=== PATIENT | female | born 1990 | race Two or more races ===

== ENCOUNTER 2020-09-04 09:04 | Emergency (ER) | payer SELFPAY ==
[~2020-09-04] VITALS: Ht 167.6 cm; Wt 65.8 kg
--- NOTE | 2020-09-04 09:10 | NUR ---
Griffin rodríguez in ED - 09/04/20 at 0924 by GISSELLE [email or web address], FOUND ON SIDEWALK ACTING BIZARRE, TO ER BED 15, HOOKED TO MONITOR, SITTER AT BEDSIDE FOR SAFETY.
[2020-09-04] MEDS ORDERED: OLANZAPINE 10 MG VIAL IM ONE ×2 (09:11→09:30)
--- NOTE | 2020-09-04 09:11 | NUR ---
[email or web address], FOUND ON SIDEWALK ACTING BIZARRE. PATIENT A/OX1, AWAKE AND ALERT, UNABLE TO SAY HER NAME, INCOHERENT.
--- NOTE | 2020-09-04 09:20 | NUR ---
URINE SENT TO LAB.
[2020-09-04] MEDS ORDERED: LORAZEPAM INJ 2 MG/ML VIAL IM ONE (09:30)
[2020-09-04] MEDS ORDERED: LORAZEPAM INJ 2 MG/ML VIAL ONE (09:37)
--- NOTE | 2020-09-04 10:03 | NUR ---
RAPID COVID SWAB DONE AND SENT TO LAB
[2020-09-04 10:05] LABS: BASOPHILS % (AUTO) 0.4 % (0.0-2.0); EOSINOPHILS % (AUTO) 0.1 % (0.0-6.0); HEMATOCRIT 37 % (33-45); HEMOGLOBIN 12.5 g/dL (11.5-14.8); LYMPHOCYTES # (AUTO) 2.4 /CMM (0.8-4.8); LYMPHOCYTES % (AUTO) 22.6 % (20.0-44.0); MEAN CORPUSCULAR HGB CONC 34 g/dl (31.0-36.0); MEAN CORPUSCULAR VOLUME 90 fL (82-100); MONOCYTES # (AUTO) 1.2 /CMM (0.1-1.30); MONOCYTES % (AUTO) 11.4 % (2.0-12.0); NEUTROPHILS % (AUTO) 65.5 % (43.0-81.0); PLATELET COUNT (AUTO) 307 /CMM (150-450); RED BLOOD CELL COUNT(AUTO) 4.11 MIL/uL (4.0-5.2); WHITE BLOOD COUNT (AUTO) 10.7 K/uL (4.3-11.0)
[2020-09-04] MEDS ORDERED: HALOPERIDOL LACTATE INJ 5 MG/ML VIAL IM ONE (10:30)
[2020-09-04] MEDS ORDERED: HALOPERIDOL LACTATE INJ 5 MG/ML VIAL ONE (10:34)
[2020-09-04 10:37] LABS: BILIRUBIN,URINE MODERATE (NEGATIVE); COLOR,URINE DARK YELLOW (YELLOW); LEUKOCYTE ESTERASE ,URINE NEGATIVE (NEGATIVE); NITRITE, URINE NEGATIVE (NEGATIVE); PH,URINE 5.5 (5.0-8.0); PROTEIN,URINE 100 mg/dl (NEGATIVE); UGLUCOSE NEGATIVE (NEGATIVE); UROBILINOGEN,URINE 0.2 EU/dL (0.2)
[2020-09-04] MEDS ORDERED: MAG HYDROX/AL HYDROX/SIMETH 30 ML UDC ONE (10:45)
[2020-09-04 10:53] LABS: BACTERIA,URINE Few /HPF (None Seen); RBC,URINE 0-2 /HPF (0-2); SQUAMOUS EPITHELIAL CELL,UR Few /HPF (None Seen); WBC,URINE 0-2 /HPF (0-3)
[2020-09-04 10:54] LABS: FINE GRANULAR CASTS,URINE Rare /LPF (None Seen)
--- NOTE | 2020-09-04 10:59 | NUR ---
LAB CALLED PT COVID RESULT NEGATIVE, DONNIE CARRANZA INFORMED.
[2020-09-04] MEDS ORDERED: MAG HYDROX/AL HYDROX/SIMETH 30 ML UDC PO ONE (11:00)
[2020-09-04] MEDS ORDERED: OMEPRAZOLE 20 MG CAPSULE.DR PO SCH (11:00)
[2020-09-04 11:10] LABS: ALBUMIN 4.2 g/dL (3.4-5.0); BILIRUBIN,DIRECT 0.2 mg/dL (0.0-0.2); BILIRUBIN,TOTAL 0.7 mg/dL (0.2-1.0); CALCIUM, SERUM 8.9 mg/dL (8.5-10.1); CREATININE 1.3 mg/dL (0.6-1.3); POTASSIUM 3.4 mmol/L (3.5-5.1); TOTAL PROTEIN, SERUM 8.3 g/dL (6.4-8.2)
[2020-09-04 11:41] LABS: ALCOHOL, BLOOD < 3 mg/dL (0-0)
[2020-09-04 11:44] LABS: ACETAMINOPHEN 0 ug/ml (10-30)
--- NOTE | 2020-09-04 13:56 | NUR ---
PATIENT IN BED ASLEEP, AROUSABLE BY TACTILE STIMULI. HOOKED TO MONITOR. VSS. SITTER AT BEDSIDE FOR SAFETY. KEPT WARM, SAFE AND COMFORTABLE. WILL CONTINUE TO MONITOR
--- NOTE | 2020-09-04 17:12 | NUR ---
PATIENT IN BED ASLEEP, AROUSABLE BY TACTILE STIMULI. HOOKED TO MONITOR. VSS. SITTER AT BEDSIDE FOR SAFETY. KEPT WARM, SAFE AND COMFORTABLE. WILL CONTINUE TO MONITOR
--- NOTE | 2020-09-04 19:01 | NUR ---
PATIENT IN BED ASLEEP, AROUSABLE BY TACTILE STIMULI. HOOKED TO MONITOR. VSS. SITTER AT BEDSIDE FOR SAFETY. KEPT WARM, SAFE AND COMFORTABLE. WILL CONTINUE TO MONITOR
--- NOTE | 2020-09-04 19:13 | NUR ---
PATIENT IS DROWSY, STATES, " LET ME SLEEP FOR 1 MORE HOUR". WILL RECHECK PATIENT AND ASSESS PATIENT.
--- NOTE | 2020-09-04 19:23 | NUR ---
report given to Hernandez FIELDS for jennifer
--- NOTE | 2020-09-04 22:13 | NUR ---
IV removed. Catheter intact and site benign. Pressure and 4x4 applied to site. No bleeding noted.
--- NOTE | 2020-09-04 22:16 | NUR ---
Patient discharged to home in stable condition. Written and verbal after care instructions given. Patient verbalizes understanding of instruction.
[2020-09-04 22:21] VITALS: BP 123/72
== END 2020-09-04 22:21 | disposition home or self-care (01) ==
LOC: ER 09:07 → EDBD 09:07 → ER 22:21
DX: F15.129 Other stimulant abuse with intoxication, unspecified (principal); Z59.0 Homelessness; Z20.822 Contact with and (suspected) exposure to COVID-19
CPT/HCPCS: 36415; 80048; 80076; 80299; 80307; 80320; 81001; 85025; 87426; 96372 ×2; 99285; C9803; J1630; J2060; J3490; G0480